=== PATIENT | female | born 1985 | race Caucasian/White ===

== ENCOUNTER → 2020-10-26 10:09 | Outpatient (BNVA) | payer OTHER, SELFPAY | PROVIDERS: PCP Hospitalist; Visit Provider Advanced Practice Midwife ==

== ENCOUNTER 2021-01-21 13:49 | Outpatient (REF) | payer OTHER, SELFPAY ==
--- NOTE | ~2021-01-21 | US_ITS ---
EXAMINATION: ULTRASOUND PELVIS COMPLETE CLINICAL INFORMATION: Pelvic and perineal pain. History of uterine ablation 11/17/2017. COMPARISON: None TECHNIQUE: Transabdominal and transvaginal imaging of pelvis is performed. FINDINGS: The uterus is anteverted and anteflexed measuring 11.5 cm length, 5.3 cm AP and 7.6 cm in transverse dimension. The endometrial thickness is 0.5 cm. There is a hypoechoic lesion in posterior body of uterus measuring 0.9 x 0.8 x 0.9 cm suggestive of a small fibroid. The cervix is unremarkable. The right ovary is not visualized. The left ovary measures 2.4 x 2.0 x 2.1 cm and volume 5.3 mL. There is an anechoic cyst measuring 1.9 x 1.4 x 1.7 cm. There is no free fluid in the cul-de-sac. US/US pelvic complete IMPRESSION: Small left ovarian cyst. Right ovary is not seen. Small uterine fibroid.
--- NOTE | ~2021-01-21 | US_ITS ---
EXAMINATION: ULTRASOUND PELVIS COMPLETE CLINICAL INFORMATION: Pelvic and perineal pain. History of uterine ablation 11/17/2017. COMPARISON: None TECHNIQUE: Transabdominal and transvaginal imaging of pelvis is performed. FINDINGS: The uterus is anteverted and anteflexed measuring 11.5 cm length, 5.3 cm AP and 7.6 cm in transverse dimension. The endometrial thickness is 0.5 cm. There is a hypoechoic lesion in posterior body of uterus measuring 0.9 x 0.8 x 0.9 cm suggestive of a small fibroid. The cervix is unremarkable. The right ovary is not visualized. The left ovary measures 2.4 x 2.0 x 2.1 cm and volume 5.3 mL. There is an anechoic cyst measuring 1.9 x 1.4 x 1.7 cm. There is no free fluid in the cul-de-sac. US/US transvaginal IMPRESSION: Small left ovarian cyst. Right ovary is not seen. Small uterine fibroid.
== END 2021-01-21 13:50 | disposition home or self-care (01) ==
LOC: HO.US 13:49
PROVIDERS: Visit Provider Advanced Practice Midwife
DX: R10.2 Pelvic and perineal pain (principal)
CPT/HCPCS: 76830; 76856

== ENCOUNTER → 2021-01-31 11:31 | Outpatient (BNVA) | payer OTHER, SELFPAY | PROVIDERS: PCP Internal Medicine; Visit Provider Advanced Practice Midwife ==